=== PATIENT | male | born 1985 | race Caucasian/White ===

== ENCOUNTER 2017-03-30 22:02 | Emergency (ER) | payer OTHER ==
--- NOTE | 2017-03-31 02:17 | ER Document Report ---
ED Neck/Back Problem - General Chief Complaint: Neck Injury Stated Complaint: HIT WITH SOFTBALL Time Seen by Provider: 03/31/17 01:18 Mode of Arrival: Ambulatory Information source: Patient Notes: Patient is a 32-year-old male who presents to the emergency department today after being hit in the upper back/neck with a softball during sliding into [place]. Patient states that he immediately had some numbness and tingling in his fingers and toes, but did not hit his head or lose consciousness. He states that the pain was sharp at first and then subsided. He states that they went to eat dinner after the game and he was having some dull, light pain in between his shoulder blades that worried him so he came in to be checked out. He denies any numbness or tingling at this time. TRAVEL OUTSIDE OF THE [place] IN LAST 30 DAYS: No - Related Data Allergies/Adverse Reactions: No Known Allergies Allergy (Verified 03/30/17 22:22) Past Medical History - General Information source: Patient - Social History Smoking Status: Unknown if Ever Smoked Family History: Reviewed & Not Pertinent Patient has suicidal ideation: No Patient has homicidal ideation: No Renal/ Medical History: Denies: Hx Peritoneal Dialysis Review of Systems - Review of Systems Constitutional: No symptoms reported EENT: No symptoms reported Cardiovascular: No symptoms reported Respiratory: No symptoms reported Gastrointestinal: No symptoms reported Genitourinary: No symptoms reported Male Genitourinary: No symptoms reported Musculoskeletal: See HPI Skin: No symptoms reported Hematologic/Lymphatic: No symptoms reported Neurological/Psychological: No symptoms reported Physical Exam - Vital signs Vitals: Temp Pulse Resp BP Pulse Ox 98.4 F 93 14 128/72 H 96 03/30/17 22:23 03/30/17 22:23 03/30/17 22:23 03/30/17 22:23 03/30/17 22:23 - Notes Notes: PHYSICAL EXAMINATION: GENERAL: Well-appearing and in no acute distress. HEAD: Atraumatic, normocephalic. EYES: Pupils equal round and reactive to light, extraocular movements intact, sclera anicteric, conjunctiva are normal. NECK: Normal range of motion, supple without lymphadenopathy LUNGS: CTAB and equal. No wheezes rales or rhonchi. HEART: Regular rate and rhythm without murmurs ABDOMEN: Soft, no tenderness. No guarding, no rebound BACK: mild thoracic vertebral tenderness, normal ROM GI/: no CVA tenderness EXTREMITIES: Normal range of motion, no pitting edema. No cyanosis. NEUROLOGICAL: Cranial nerves grossly intact. Normal sensory/motor exams. PSYCH: Normal mood, normal affect. SKIN: Warm, Dry, normal turgor, no rashes or lesions noted Course - Re-evaluation Re-evalutation: 03/31/17 02:17 X-ray of the thoracic spine and cervical spine negative for any acute pathology. Patient continues to decline anything for pain as he states that his pain is only a 2 out of 5 and that he just wanted to make sure nothing was wrong. - Vital Signs Vital signs: Temp Pulse Resp BP Pulse Ox 97.6 F 60 16 106/64 96 03/31/17 02:26 03/31/17 02:26 03/31/17 02:26 03/31/17 02:26 03/31/17 02:26 Discharge - Discharge Clinical Impression: Neck pain Back pain Qualifiers: Back pain location: thoracic back pain Chronicity: acute Back pain laterality: midline Qualified Code(s): M54.6 - Pain in thoracic spine Condition: Stable Disposition: HOME, SELF-CARE Additional Instructions: Return immediately for any new or worsening symptoms. Follow up with primary care provider, call tomorrow to make followup appointment. Prescriptions: Cyclobenzaprine HCl [Flexeril 10 mg Tablet] 10 mg PO TIDP PRN #15 tab PRN Reason: Forms: Return to Work
[2017-03-31 02:28] VITALS: BP 106/64
== END 2017-03-31 02:26 | disposition home or self-care (01) ==
LOC: ER 22:02
DX: M54.2 Cervicalgia (principal); M54.6 Pain in thoracic spine; W21.03XA Struck by baseball, initial encounter; Y93.64 Activity, baseball
CPT/HCPCS: 72050; 72070; 99283